=== PATIENT | female | born 1935 | race Caucasian/White ===

== ENCOUNTER 2022-10-25 07:27 | Inpatient (IN) | payer MEDICARE ==
[~2022-10-25] VITALS: Ht 147.3 cm; Wt 47.6 kg
[2022-10-25] MEDS ORDERED: DILTIAZEM HCL 25 MG IV ONE (07:58)
[2022-10-25] MEDS ORDERED: IV NS 0.9% 1,000 ML BAG IV ONE (08:00)
[2022-10-25] MEDS ORDERED: DILTIAZEM HCL 25 MG IV IV ONE (08:00)
[2022-10-25 08:01] LABS: BASOPHILS % (AUTO) 0.6 % (0.0-2.0); EOSINOPHILS # (AUTO) 0.1 K/uL (0.0-0.7); EOSINOPHILS % (AUTO) 2.8 % (0.0-6.0); HEMATOCRIT 43 % (33-45); HEMOGLOBIN 14.5 g/dL (11.5-14.8); LYMPHOCYTES # (AUTO) 1.3 K/uL (0.8-4.8); MEAN CORPUSCULAR HEMOGLOBIN 33 PG (26.0-33.0); MEAN CORPUSCULAR HGB CONC 34 g/dl (31.0-36.0); MEAN CORPUSCULAR VOLUME 98 fL (82-100); MONOCYTES # (AUTO) 0.4 K/uL (0.1-1.30); MONOCYTES % (AUTO) 8.3 % (2.0-12.0); NEUTROPHILS # (AUTO) 2.7 K/uL (1.8-8.9); NEUTROPHILS % (AUTO) 59.3 % (43.0-81.0); PLATELET COUNT (AUTO) 200 K/uL (150-450); RED BLOOD CELL COUNT(AUTO) 4.43 MIL/uL (4.0-5.2); RED CELL DISTRIBUTION WIDTH 13.1 % (11.5-15.0); WHITE BLOOD COUNT (AUTO) 4.6 K/uL (4.3-11.0)
[2022-10-25 08:16] LABS: CALCIUM, SERUM 9.4 mg/dL (8.5-10.1); CARBON DIOXIDE 30 mmol/L (21-32); CHLORIDE 105 mmol/L (98-107); CREATININE 0.8 mg/dL (0.6-1.3); D-DIMER 0.79 mg/L(FEU (0.17-0.50); GLUCOSE 117 mg/dL (74-106); INR 1.07 (0.91-1.10); PARTIAL THROMBOPLASTIN TIME 27.2 SEC (24.3-34.3); POTASSIUM 3.7 mmol/L (3.5-5.1); PROTHROMBIN TIME 11.2 SECS (9.2-11.1); SODIUM SERUM 140 mmol/L (136-145); UREA NITROGEN, BLOOD 22 mg/dL (7-18)
[2022-10-25 08:27] LABS: APPEARANCE,URINE CLEAR (CLEAR); BILIRUBIN,URINE NEGATIVE (NEGATIVE); BLOOD, URINE TRACE-INTA Ery/uL (NEGATIVE); COLOR,URINE YELLOW (YELLOW); KETONES,URINE NEGATIVE (NEGATIVE); LEUKOCYTE ESTERASE ,URINE TRACE (NEGATIVE); NITRITE, URINE NEGATIVE (NEGATIVE); PROTEIN,URINE NEGATIVE (NEGATIVE); UGLUCOSE NEGATIVE (NEGATIVE); UROBILINOGEN,URINE 0.2 EU/dL (0.2)
[2022-10-25 08:30] LABS: ALANINE AMINOTRANSFERASE 24 U/L (12-78); ALBUMIN 3.4 g/dL (3.4-5.0); ALKALINE PHOSPHATASE 176 U/L (46-116); ASPARTATE AMINOTRANSFERASE 18 U/L (15-37); BILIRUBIN,DIRECT 0.1 mg/dL (0.0-0.2); BILIRUBIN,TOTAL 0.5 mg/dL (0.2-1.0); NT-PRO BNP 445 pg/mL (0-125); TOTAL PROTEIN, SERUM 7.6 g/dL (6.4-8.2)
[2022-10-25] MEDS ORDERED: DILTIAZEM HCL IV 125 MG in IV NS 0.9% 100 ML IV PRN (08:30)
[2022-10-25] MEDS ORDERED: LATA2.5D2 RIGHTEYE (08:37)
[2022-10-25] MEDS ORDERED: TIMO5DRO31 RIGHTEYE (08:37)
[2022-10-25] MEDS ORDERED: LEVO88TA2 PO (08:37)
[2022-10-25] MEDS ORDERED: MAG HYDROX/AL HYDROX/SIMETH 30 ML UDC PO PRN (11:00)
[2022-10-25] MEDS: APIXABAN 2.5 MG TABLET PO SCH ×2 (11:00→16:18)
[2022-10-25] MEDS ORDERED: MAGNESIUM HYDROXIDE 30 ML UDC PO PRN (11:00)
[2022-10-25] MEDS ORDERED: DILTIAZEM HCL 50 MG IV IV PRN (11:00)
[2022-10-25] MEDS ORDERED: Z GUARD REMEDY 4 OZ OINT TP PRN (11:00)
[2022-10-25] MEDS: METOPROLOL TARTRATE 25 MG TABLET PO SCH ×2 (11:00→16:35)
[2022-10-25] MEDS ORDERED: ACETAMINOPHEN 325 MG TABLET PO PRN (11:00)
[2022-10-25] MEDS ORDERED: ONDANSETRON HCL/PF 4 MG/2 ML VIAL IVP PRN (11:00)
[2022-10-25] MEDS ORDERED: ZOLPIDEM TARTRATE 5 MG TABLET PO PRN (11:00)
[2022-10-25 11:10] VITALS: BP 108/55; TEMP 98.5; O2SAT 96
[2022-10-25] MEDS ORDERED: APIXABAN 2.5 MG TABLET ONE (11:19)
[2022-10-25] MEDS ORDERED: METOPROLOL TARTRATE 25 MG TABLET ONE (11:20)
[2022-10-25] MEDS ORDERED: DILTIAZEM HCL 25 MG IV IV PRN (11:30)
[2022-10-25 12:56] VITALS: BP 108/55; TEMP 98.5; O2SAT 96
[2022-10-25 16:00] VITALS: BP 105/53; TEMP 98.2; O2SAT 97
[2022-10-25] MEDS: TIMOLOL 0.5% SOLN OPHTH 5 ML BOTTLE RIGHTEYE SCH (17:28)
[2022-10-25 20:00] VITALS: BP 106/57; TEMP 98.5; O2SAT 98
[2022-10-25] MEDS ORDERED: LATANOPROST EYE DROP 0.005% 2.5 ML BOTTLE RIGHTEYE SCH (22:00)
[2022-10-26] VITALS: BP 112/74; TEMP 98; O2SAT 99
[2022-10-26 04:00] VITALS: BP 121/58; TEMP 97.7; O2SAT 99
[2022-10-26] MEDS ORDERED: LEVOTHYROXINE SODIUM 88 MCG TABLET PO SCH (07:30)
[2022-10-26 08:00] VITALS: BP 130/67; TEMP 98; O2SAT 99
[2022-10-26] MEDS: APIXABAN 2.5 MG TABLET PO SCH ×2 (09:00→09:16)
[2022-10-26] MEDS: METOPROLOL TARTRATE 25 MG TABLET PO SCH ×2 (09:00→09:16)
[2022-10-26] MEDS: TIMOLOL 0.5% SOLN OPHTH 5 ML BOTTLE RIGHTEYE SCH (09:16)
== END 2022-10-26 11:00 | disposition left against medical advice (07) | DRG 308 ==
LOC: ER 07:30 → TELE1 11:08
PROVIDERS: ADMIT Internal Medicine; ATTEND Internal Medicine
PROC: 05H533Z Insertion of Infusion Device into Right Subclavian Vein, Percutaneous Approach (ICD-10-PCS; principal; 2022-10-25)
PROC: B546ZZA Ultrasonography of Right Subclavian Vein, Guidance (ICD-10-PCS; 2022-10-25)
DX: I48.91 Unspecified atrial fibrillation (principal); E43 Unspecified severe protein-calorie malnutrition; N17.0 Acute kidney failure with tubular necrosis; E03.9 Hypothyroidism, unspecified; E88.09 Other disorders of plasma-protein metabolism, not elsewhere classified; I10 Essential (primary) hypertension; Z87.891 Personal history of nicotine dependence; H54.62 Unqualified visual loss, left eye, normal vision right eye; F41.9 Anxiety disorder, unspecified; J44.9 Chronic obstructive pulmonary disease, unspecified; Z68.21 Body mass index [BMI] 21.0-21.9, adult; R53.1 Weakness
CPT/HCPCS: 36410; 36415; 71045-TC; 80048-TC; 80076-TC; 83605-TC; 83880; 84443-TC; 84484-TC; 85025-TC; 85378-TC; 85730-TC; 97112-TC; 97116-TC; A4223; G0378; J3490; J7030